=== PATIENT | male | born 1945 | race Caucasian/White ===

== ENCOUNTER 2020-09-28 16:45 | Emergency (ER) | payer MEDICARE ==
--- NOTE | 2020-09-28 18:11 | EDM.PDOC ---
ED HPI GENERAL MEDICAL PROBLEM - General Chief Complaint: Skin Complaint Stated Complaint: FISH HOOK Time Seen by Provider: 09/28/20 17:26 Source of Information: Reports: Patient History Limitations: Reports: No Limitations - History of Present Illness INITIAL COMMENTS - FREE TEXT/NARRATIVE: 75 yo male present to the ER with a fishhook in his right lower leg. [place] thinks he is uptodate on tetanus - Related Data Allergies Allergy/AdvReac Type Severity Reaction Status Date / Time No Known Allergies Allergy Verified 09/28/20 17:26 Home Meds: Home Meds Aspirin 1 tab PO DAILY 09/28/20 [History] lisinopriL [Lisinopril] 1 tab PO DAILY 09/28/20 [History] Past Medical History Cardiovascular History: Reports: Hypertension - Past Surgical History GI Surgical History: Reports: Hernia, Abdominal Musculoskeletal Surgical History: Reports: Knee Replacement Social & Family History - Tobacco Use Tobacco Use Status *Q: Never Tobacco User ED ROS GENERAL - Review of Systems Review Of Systems: See Below Constitutional: Denies: Fever, Chills Respiratory: Denies: Shortness of Breath, Wheezing Cardiovascular: Denies: Chest Pain Skin: Reports: Wound ED EXAM, SKIN/RASH Exam: See Below Exam Limited By: No Limitations General Appearance: Alert, WD/WN, No Apparent Distress Respiratory/Chest: No Respiratory Distress Neurological: Alert, Oriented Skin: Other (multi-saritha fishing lure in anterior lower right leg 2 barbs imbedded into skin) ED SKIN PROCEDURES - Additional/Other Procedure(s) Other (Free Text) Procedure(s): fish hook removal 2 hooks - infiltrated 2 cc lidocaine with epi, area cleansed with alcohol hooks removed with counter pressure method. Course - Vital Signs Last Recorded V/S: Last Vital Signs Temp 36.0 C L 09/28/20 17:31 Pulse 81 09/28/20 17:31 Resp 14 09/28/20 17:31 BP 139/79 09/28/20 17:31 Pulse Ox 98 09/28/20 17:31 Departure - Departure Time of Disposition: 18:14 Disposition: Home, Self-Care 01 Condition: Good Clinical Impression: Puncture wound Fish hook injury of lower leg Qualifiers: Encounter type: initial encounter Laterality: right Qualified Code(s): S89.91XA - Unspecified injury of right lower leg, initial encounter - Discharge Information *PRESCRIPTION DRUG MONITORING PROGRAM REVIEWED*: Not Applicable *COPY OF PRESCRIPTION DRUG MONITORING REPORT IN PATIENT CHETAN: Not Applicable Instructions: Puncture Wound Referrals: PCP,None [Primary Care Provider] - Additional Instructions: wash with warm soapy water observe for signs of infection Sepsis Event Note (ED) - Evaluation Sepsis Screening Result: No Definite Risk - Focused Exam Vital Signs: Vital Signs Temp Pulse Resp BP Pulse Ox 09/28/20 17:31 36.0 C L 81 14 139/79 98
== END 2020-09-28 18:26 | disposition home or self-care (01) ==
LOC: JP.ED 16:45
DX: S81.841A Puncture wound with foreign body, right lower leg, initial encounter (principal); I10 Essential (primary) hypertension; Z79.82 Long term (current) use of aspirin; Z79.899 Other long term (current) drug therapy; W45.8XXA Other foreign body or object entering through skin, initial encounter
CPT/HCPCS: 99283